=== PATIENT | female | born 1970 | race American Indian/Alaskan Native ===

== ENCOUNTER 2017-04-01 12:04 | Day surgery (SDC) | payer OTHER ==
[2017-04-01] MEDS ORDERED: NACL 0.9% 1000 ML 1,000 ML IV SCH (13:00)
[2017-04-01] MEDS ORDERED: DIPRIVAN 10 MG/ML IV ONE ×2 (14:42)
--- NOTE | 2017-04-01 14:45 | Anesthesia Consultation ---
Anesthesia Consult and Med Hx Date of service: 04/01/17 - Airway Anesthetic Teeth Evaluation: Good ROM Head & Neck: Adequate Mental/Hyoid Distance: Adequate Mallampati Class: Class II Intubation Access Assessment: Probably Good - Pulmonary Exam CTA: Yes - Cardiac Exam Cardiac Exam: RRR - Pre-Operative Health Status ASA Pre-Surgery Classification: ASA2 Proposed Anesthetic Plan: MAC - Pre-Anesthesia Comment Pre-Anesthesia Comments: Pt has swelling in the LEs (on lasix) , EKG/Echo done last week to r/o pericardial, - Pulmonary Hx Smoking: No Hx Asthma: No - Cardiovascular System Hx Hypertension: No - Central Nervous System Hx Seizures: No CVA: No - Endocrine Hx Renal Disease: No (left kidney in pelvic) Hx Liver Disease: No Hx Non-Insulin Dependent Diabetes: No - Other Systems Hx Obesity: Yes - Additional Comments Anesthesia Medical History Comments: NAC
--- NOTE | 2017-04-01 14:45 | Anesthesia Day of Surgery ---
Anesthesia Day of Surgery - Day of Surgery Patient Examined: Yes Patient H&P Reviewed: Yes Patient is NPO: Yes
--- NOTE | 2017-04-01 15:17 | Operative Report ---
Operative Report Operative Report: Date of procedure: 04/01/2017 Procedure: Esophagogastroduodenoscopy with multiple mucosal biopsies Attending physician: Junior Lauren MD Auto Damage Trainee: Junior Lauren MD Indication: Patient is a 47-year-old female who presented history of epigastric pain indigestion or heartburn as well as dysphagia. An upper endoscopy is done to assess patient regarding course of symptoms so that treatment may be directed based on the findings. Consent: Informed consent was obtained after advising the patient and family regarding nature of this procedure, its indications, potential benefits as well as possible complications including but not limited to bleeding perforation and adverse reaction to medication, infection as well as other cardiopulmonary complications. An informed written and verbal consent was then obtained after due opportunity was provided for questions and answers. Monitoring: Patient was monitored continuously with pulse oximetry and electrocardiographic recordings as well as blood pressure recordings. Vital signs remained stable throughout this procedure with no untoward events. Preoperative assessment: Patient was assessed immediately prior to this procedure for capacity to tolerate monitored anesthesia care and moderate sedation as well as general anesthesia. Patient's ASA classification is 2, Mallampati class is 2, Hyomental distance is 3. Instrument: [employer] video endoscope Medications: Propofol given intravenously in divided doses. For details of his refer to anesthesia records. Description of procedure: Patient was placed in the left lateral decubitus position after achieving sedation, the endoscope was introduced into the esophagus under direct vision. It was then advanced beyond the esophagus into the stomach and then beyond the stomach into the duodenum and to the second portion of the duodenum. It was subsequently withdrawn with careful inspection of all mucosal surfaces with the following findings. Findings: The Z line was irregular at 36 cm. There was a 4 cm sliding hiatal hernia. There was erythema in the gastric antrum with some erosions. Biopsies of the antrum were obtained to rule out gastritis. The duodenum was normal to second portion. There was no luminal constriction or stricture seen in the esophagus. Impression: Irregular Z line. Hiatal hernia. Gastric antral erythema. Plan: Patient has not been taking proton pump inhibitors as had been prescribed although she continues to have reflux symptoms. Given the endoscopic findings, will give her a trial of famotidine 40 mg daily. Patient was further instructed to continue antireflux measures. Also, we will follow the pathology report and direct additional treatment based on the pathology report.
--- NOTE | 2017-04-01 15:18 | Discharge Summary ---
Short Stay Discharge Plan Activity: advance as tolerated Weight Bearing Status: Weight Bear as Tolerated Diet: regular Follow up with: PRIMARY CARE, [Primary Care Provider] - 7 Days
[2017-04-01 15:40] VITALS: BP 114/72
== END 2017-04-01 12:05 | disposition home or self-care (01) ==
LOC: GIO 12:04
PROVIDERS: ATTEND Internal Medicine Gastroenterology
DX: K29.50 Unspecified chronic gastritis without bleeding (principal); K22.8 Other specified diseases of esophagus; K44.9 Diaphragmatic hernia without obstruction or gangrene; J45.909 Unspecified asthma, uncomplicated; I10 Essential (primary) hypertension; E66.9 Obesity, unspecified; Z68.36 Body mass index [BMI] 36.0-36.9, adult; Z98.890 Other specified postprocedural states; Z79.899 Other long term (current) drug therapy; Z72.89 Other problems related to lifestyle
CPT/HCPCS: 43239; 81025; 88305; 88342; J2704; J7030